=== PATIENT | male | born 1945 | race Caucasian/White ===

== ENCOUNTER 2019-10-19 09:55 | Outpatient (RCR) | payer MEDICARE, SELFPAY ==
[2019-10-19] VITALS (8 sets, daily range): BP systolic 105–140; BP diastolic 52–76; PULSE 66–79; RESP 14–18; TEMP 35.7–36.4; O2SAT 96–100
[2019-10-19] MEDS: ACETAMINOPHEN 325 MG TABLET 650 MG PO (10:28)
[2019-10-19] MEDS: FUROSEMIDE INJ 40 MG/4 ML VIAL 20 MG IV PUSH (12:44)
== END 2019-12-09 23:59 | disposition home or self-care (01) ==
LOC: ANHCPCTRAN 09:55
PROVIDERS: Visit Provider Internal Medicine Hematology & Oncology
DX: D46.9 Myelodysplastic syndrome, unspecified (principal)
CPT/HCPCS: 36415; 36430; 86850; 86900; 86901; 86920; 96374; A9270; J1940; J7050; P9016

== ENCOUNTER 2019-12-07 05:33 | Inpatient (IN) | payer MEDICARE, SELFPAY ==
[2019-12-07] VITALS (93 sets, daily range): BP systolic 66–144; BP diastolic 14–88; PULSE 42–98; RESP 12–29; TEMP 30.9–36.9; O2SAT 18–100; BMI 30.9
--- NOTE | ~2019-12-07 | US_ITS ---
US renal BI 12/08/2019 13:32 Procedure: Realtime transabdominal ultrasound of the kidneys and bladder. Indication: Acute renal insufficiency Comparison: Ultrasound dated 02/15/2018 Findings: Renal echotexture is normal bilaterally without hydronephrosis, contour deforming mass or r enal calculus. The right kidney measures 9.7 cm and left kidney measures 9.8 cm. There is a Lou cat heter in the bladder. Impression: 1: Unremarkable renal ultrasound. No stones, masses or hydronephrosis. Reviewed, dictated and finalized at location B. M CHEESE MAKER Impression: 1: Unremarkable renal ultrasound. No stones, masses or hydronephrosis.
--- NOTE | ~2019-12-07 | XR_ITS ---
EXAMINATION: XR abdomen NG/feed tube insert DATE: 12/07/2019 07:45 INDICATION: Orogastric tube placement. TECHNIQUE: A supine view of the abdomen on 2 radiographs was obtained. COMPARISON: None. FINDINGS: The lower abdomen and left lateral aspect of the abdomen are excluded. The nasogastric tube tip is in the distal esophagus. The endotracheal tube tip is 5.2 cm above the ag. IMPRESSION: 1. Nasogastric tube tip in the distal esophagus. Advancement 13 cm is recommended. Reviewed, dictated and finalized at location A. HOUSE ANALYST IMPRESSION: 1. Nasogastric tube tip in the distal esophagus. Advancement 13 cm is recommend ed.
--- NOTE | ~2019-12-07 | XR_ITS ---
EXAMINATION: XR chest 1V portable DATE: 12/08/2019 05:16 INDICATION: Acute respiratory failure. Septic shock. TECHNIQUE: A single frontal view of the chest was obtained. COMPARISON: Chest single view 12/07/2019, CT abdomen and pelvis 12/07/2019 FINDINGS: There are small pleural effusions. There are airspace opacities in the mid and lower lung z ones with a lower lung predominance. No pneumothorax. The heart size is normal. The endotracheal tube tip is 5.1 cm above the ag. The nasogastric tube tip is in the stomach. IMPRESSION: 1. Small pleural effusions with worsening on the left. 2. Worsened airspace opacities in the mid and lower lung zones, consistent with atelectasis versus pn eumonia. Reviewed, dictated and finalized at location A. DWORKS DESIGNER IMPRESSION: 1. Small pleural effusions with worsening on the left. 2. Worsened airspace opacities in the mid and lower lung zones, consistent with atelectasis versus pneumonia.
--- NOTE | ~2019-12-07 | XR_ITS ---
XR chest 1V portable 12/09/2019 05:36 Indication: Acute respiratory failure. Septic shock. Pneumonia. Procedure: AP portable chest Comparison: Comparison to multiple prior studies sequentially, with oldest reviewed study dated 02/14. Findings: Endotracheal tube tip 4.2 cm above the ag. Cardiomegaly. NG tube in the stomach. Diffus e bilateral airspace disease, likely edema. Layering pleural effusions. No pneumothorax. No acute oss eous abnormality. Impression: 1: Cardiomegaly with diffuse pulmonary edema which has progressed since prior study. This likely repr esents pulmonary edema. Pneumonia is less favored. 2: Layering bilateral pleural effusions. Reviewed, dictated and finalized at location A. CHBOARD OPERATOR Impression: 1: Cardiomegaly with diffuse pulmonary edema which has progressed since prior s tudy. This likely represents pulmonary edema. Pneumonia is less favored. 2: Layering bilateral pleural effusions.
--- NOTE | ~2019-12-07 | CT_ITS ---
EXAMINATION: CT brain wo con DATE: 12/07/2019 06:04 INDICATION: Unresponsive. TECHNIQUE: Computed tomography (CT) of the head was performed without intravenous contrast. The mA wa s adjusted according to patient size. Iterative reconstruction technique was employed. The dose-lengt h product was 605.33 mGy-cm. COMPARISON: None FINDINGS: There is diffuse brain volume loss. There is no intracranial hemorrhage, acute infarction, or abnormal intracranial mass lesion. The ventricles are normal in size. There is mild mucosal thicke juan c in the paranasal sinuses. There are likely changes of ocular lens replacement surgeries. The mas toid air cells are normal. IMPRESSION: 1. Normal aging brain. Reviewed, dictated and finalized at location A. NSTRUCTIVE DENTIST IMPRESSION: 1. Normal aging brain.
--- NOTE | ~2019-12-07 | XR_ITS ---
EXAMINATION: XR chest ET placement DATE: 12/07/2019 06:18 INDICATION: Intubation. TECHNIQUE: A single frontal view of the chest was obtained. COMPARISON: Chest 2 views 02/14/2018 FINDINGS: There are lucencies in the lungs, consistent with emphysema. There is mild atelectasis at l eft lung base. There are mild airspace opacities in the perihilar regions. No pleural effusion or pne umothorax. The heart size is normal. The endotracheal tube tip is 5.4 cm above the ag. IMPRESSION: 1. Mild airspace opacities in the perihilar regions, consistent with atelectasis versus pneumonia. 2. Emphysema. Reviewed, dictated and finalized at location A. WOOD FLOOR INSTALLER IMPRESSION: 1. Mild airspace opacities in the perihilar regions, consistent with atelectasi s versus pneumonia. 2. Emphysema.
--- NOTE | ~2019-12-07 | XR_ITS ---
EXAMINATION: XR abdomen NG/feed tube rechec DATE: 12/07/2019 14:48 INDICATION: Nasogastric tube adjustment. TECHNIQUE: A supine view of the abdomen on 2 radiographs was obtained. COMPARISON: Abdomen radiograph at 7:40 AM, CT abdomen and pelvis 12/07/2019 FINDINGS: The lower abdomen is excluded. There are no dilated loops of bowel. The nasogastric tube ti p is in the stomach. IMPRESSION: 1. Nasogastric tube tip in the stomach. Reviewed, dictated and finalized at location A. ICE CONTROL CLERK
--- NOTE | ~2019-12-07 | CT_ITS ---
EXAMINATION: CT abdomen pelvis wo con DATE: 12/07/2019 09:13 INDICATION: Sepsis. Elevated lactic acid. TECHNIQUE: Computed tomography (CT) of the abdomen and pelvis was performed without intravenous contr ast. Automated exposure control and iterative reconstruction technique were employed. Exam dose: 130 6.92 mGy-cm total exam DLP. COMPARISON: None. FINDINGS: Mild right and minimal left pleural effusion. There is bilateral lower lobe dependent atele ctasis, right greater than left. Cardiomegaly. There is extensive left and right coronary artery calcification. No pericardial effusio n. Bilateral primarily dependent lower lobe atelectasis. A nasogastric tube terminates in the distal esophagus. There is nonspecific circumferential wall thic kening of the distal esophagus, possibly due to esophagitis. There is surface nodularity of the liver suggesting cirrhosis. Clinical correlation is recommended. T here is nonspecific gallbladder wall thickening and evidence of cholelithiasis. There is pericholecys tic fluid and/or stranding. Gallbladder wall thickening can be due to acute or chronic cholecystitis as well as cirrhosis, congestive heart failure. Consider gallbladder ultrasound examination as clinic ally appropriate. No focal hepatic space-occupying mass lesion is evident on this limited noncontrast examination. Sple en measures 12.4 cm height, within upper limits of normal. There is diffuse peripancreatic stranding. There is nonspecific thickening along the anterior pararen al fascia, especially on the left, as well as some prominence of the lateroconal fascia bilaterally. Pancreatitis is not excluded. Clinical correlation is advised. Normal adrenal glands. No renal mass lesion or urinary tract calculus or hydroureteronephrosis. There is extensive calcification of the abdominal aorta, superior mesenteric, renal and iliac arterie s and femoral arteries. No abdominal aortic aneurysm. There are shotty nonenlarged periaortic and aor tocaval lymph nodes. Prominent prostate calcifications. There is a Lou catheter within the evacuated urinary bladder and suggestion of bladder wall thickening. Mild sigmoid diverticulosis; no CT evidence of diverticulitis. No bowel obstruction or intraperitonea l free air. No unusual bowel wall thickening or pneumatosis. Recent nondisplaced anterior right fifth and sixth rib fractures and possible very subtle nondisplace d anterior left fifth rib fracture. There is a right femoral vein catheter extending to the very caudal aspect of the inferior vena cava. IMPRESSION: Surface nodularity of liver suggesting cirrhosis; spleen is upper limits of normal size Peripancreatic stranding and thickening of the anterior pararenal and lateroconal fascia; pancreatiti s cannot be excluded. Clinical correlation is advised Mild colonic diverticulosis Bilateral recent rib fractures Nasogastric tube in distal esophagus Nonspecific thickening of the distal esophageal wall, possibly secondary to esophagitis. Extensive coronary and abdominal aortic atherosclerosis Reviewed, dictated and finalized at [facility] Reviewed, dictated and finalized at [facility]. [employer] IMPRESSION: Surface nodularity of liver suggesting cirrhosis; spleen is upper limits of normal size Peripancreatic stranding and thickening of the anterior pararenal and laterocon al fascia; pancreatitis cannot be excluded. Clinical correlation is advised Mild colonic diverticulosis Bilateral recent rib fractures Nasogastric tube in distal esophagus Nonspecific thickening of the distal esophageal wall, possibly secondary to eso phagitis. Extensive coronary and abdominal aortic atherosclerosis
[2019-12-07] MEDS: RAPID SEQUENCE INTUBATION KIT 1 EACH (05:40)
--- NOTE | 2019-12-07 05:46 | ECG_ITS ---
Measurements Intervals [place] Rate: 72 P: AK: 0 QRS: -64 QRSD: 179 T: 92 QT: 469 QTc: 515 Interpretive Statements ATRIAL FIBRILLATION LEFT AXIS DEVIATION RIGHT BUNDLE BRANCH BLOCK LOW VOLTAGE- PRECORDIAL LEADS CANNOT RULE OUT SEPTAL INFARCT, AGE INDETERMINATE BASELINE ARTIFACT- I ABNORMAL ECG Electronically Signed On 12-07-2019 6:56:17 SOLAR ENERGY SYSTEM INSTALLER by Mirza Weinstein D.O.
[2019-12-07] MEDS: LACTATED RINGERS 1,000 ML 999 ML IV CONT ×2 (05:47→07:36)
--- NOTE | 2019-12-07 06:05 | ED.GENADULT ---
HPI - General Adult General Chief complaint: Cardiac Arrest/CPR <Bridget Patten MD - Last Filed: 12/07/19 23:37> Stated complaint: unresponsive <Bridget Patten MD - Last Filed: 12/07/19 23:37> Time Seen by Provider: 12/07/19 05:46 <Bridget Patten MD - Last Filed: 12/07/19 23:37> Source: EMS <Bridget Patten MD - Last Filed: 12/07/19 23:37> Mode of arrival: EMS <Bridget Patten MD - Last Filed: 12/07/19 23:37> Limitations: clinical condition <Bridget Patten MD - Last Filed: 12/07/19 23:37> History of Present Illness HPI narrative: 74 yo male with h/o DM, hyperlipidemia, HTn who presents via EMS for evaluation of unresponsiveness. EMS states they were called to patient's house for a diabetic case. Patient 's got up this morning and she found patient unresponsive. EMS states on arrival patient was unresponsive and his blood sugar was 57. They gave patient 1 mg glucagon and they states patient appeared to become more responsive. He shortly afterwards became unsponsive again. EMS states patient's HR was found to be in the 40s. He was given 3 doses of atropine 0.5 mg . Patient continued to be unresponsive so they began pacing his rhythm. On ER arrival, patient is unresponsive with agonal breathing. IT is unclear how long patient has been unresponsive <Bridget Patten MD - Last Filed: 12/07/19 23:37> Related Data Home medications: Home Medications Medication Instructions Recorded Confirmed atorvastatin 10 mg PO DAILY 07/19/19 12/07/19 glipizide 5 mg PO BID 07/19/19 12/07/19 metformin 500 mg PO BID 07/19/19 12/07/19 metoprolol succinate 50 mg 50 mg PO DAILY 11/02/19 12/07/19 tablet,extended release 24 hr <Bridget Patten MD - Last Filed: 12/07/19 23:37> Allergies/adverse reactions: Allergies Allergy/AdvReac Type Severity Reaction Status Date / Time No Known Allergies Allergy Verified 10/11/19 14:07 <Bridget Patten MD - Last Filed: 12/07/19 23:37> Review of Systems Review of Systems: ROS unobtainable: unobtainable due to endotracheal tube and unobtainable due to mental condition <Bridget Patten MD - Last Filed: 12/07/19 23:37> [facility] Past Medical History Medical History: Medical History (Updated 12/07/19 @ 13:39 by Zhane Hennessy MD) Alcoholism Anemia Chronic anemia related to iron overload syndrome/myelodysplasia Cirrhosis of liver COPD (chronic obstructive pulmonary disease) Essential (primary) hypertension Hyperlipidemia Iron overload Myelodysplastic syndrome Type 2 diabetes mellitus With history of DKA <Bridget Patten MD - Last Filed: 12/07/19 23:37> Surgical History Surgical History: Surgical History (Updated 12/07/19 @ 10:24 by Jaren España MD) History of cataract surgery History of mandibular surgery History of thoracotomy <Bridget Patten MD - Last Filed: 12/07/19 23:37> Family History Family History: Family History (Updated 12/07/19 @ 21:18 by Smita Montez RN) Sibling Diabetes mellitus Other COPD (chronic obstructive pulmonary disease) <Bridget Patten MD - Last Filed: 12/07/19 23:37> Social History Social History: Social History (Updated 12/07/19 @ 10:26 by Jaren España MD) Social History: Patient smokes a pack a day for about 40 years but quit 2 years ago. Patient drinks alcohol daily. states it is ?quite a bit?. He lives home with his . They do have dogs. His is individual would make medical decisions for him if he is not able. Smoking packs per day: 1 Smoking cigarettes per day: 20.0 Years smoked: 40 Smoking pack-years: 40.00 Smoking status: Former smoker Smoking end date: 10/04/16 Alcohol intake: current Drinks per week: 35 Substance use: unknown Substance use type: does not use Gender identity (if verbalized by the patient): Male Spiritual care concerns: No Agree to bl
[2019-12-07 07:16] LABS: Basophils Absolute Auto 0.1 K/mm3 (0.0-0.1); Basophils Percent Auto 0.2 % (0.2-1.2); Eosinophils Percent Auto 0.1 % (0-4.4); Immature Granulocyte Absolute 0.49 K/mm3 (0.00-0.031); Immature Granulocyte Percent A 2.2 % (0-0.5); Immature Platelet Fraction Pct 8.2 % (0.9-11.2); Lymphocytes Absolute Auto 1.71 K/mm3 (0.9-3.2); Lymphocytes Percent Auto 7.6 % (18.3-44.2); Mean Corpuscular HGB Conc 25.7 g/dl (32-36); Mean Corpuscular Hemoglobin 20.4 pg (26-34); Mean Corpuscular Volume 79.2 fl (80-100); Monocytes Percent Auto 13.1 % (2.6-8.5); Neutrophils Absolute Auto 17.4 K/mm3 (1.3-6.7); Neutrophils Percent Auto 76.8 % (45.5-73.1); Nucleated Red Blood Cells Absolute Auto 1.6 K/mm3 (0.0-0.012); Nucleated Red Blood Cells Perc 6.9 % (0.0-0.2); Platelet Count Result 539 k/mm3 (150-375); Red Cell Distribution Width 33.3 % (11.5-14.5); White Blood Count 22.6 K/mm3 (4.5-10.0)
[2019-12-07 07:22] LABS: Hematocrit 20.6 % (42.0-52.0); Hemoglobin 5.3 g/dL (14.0-18.0)
[2019-12-07 07:27] LABS: Glucose Point of Care 191 (65-105)
[2019-12-07 07:31] LABS: Ethanol < 10 mg/dL (<10)
[2019-12-07 07:35] LABS: Albumin Level 3.8 g/dL (3.5-5.1); Alkaline Phosphatase 85 U/L (38-126); Aspartate Amino Transferase 398 U/L (17-59); Bilirubin,Total 2.6 mg/dL (0.2-1.3); Blood Urea Nitrogen 94 mg/dL (9-20); Calcium 8.5 mg/dL (8.4-10.2); Carbon Dioxide 7 mmol/L (22-30); Chloride 96 mmol/L (98-107); Estimated CRCL calculation 14 ml/min; Estimated Glomerular Filt Rate 11; Glucose 119 mg/dL (75-110); Magnesium 2.2 mg/dL (1.6-2.3); Platelet Estimate Increased (Adequate); Potassium 7.1 mmol/L (3.4-5.0); Sodium 138 mmol/L (137-145)
[2019-12-07 07:36] LABS: Anisocytosis 2+ (NORMAL); Hypochromasia 3+ (NORMAL); Ovalocytes 2+ (NORMAL); Polychromasia 2+ (NORMAL)
[2019-12-07 07:37] LABS: INR 4.7; Partial Thromboplastin Time 45.4 SECONDS (22.3-36.8); Prothrombin Time 43.7 Seconds (11.1-14.7)
[2019-12-07 07:43] LABS: Troponin I 0.074 ng/mL (0.000-0.034)
[2019-12-07] MEDS: CALCIUM GLUCONATE 1,000 MG/10 ML VIAL 2000 MG IV PUSH (07:47)
[2019-12-07] MEDS: SODIUM BICARBONATE 8.4% 50 MEQ/50 ML VIAL IV PUSH (07:49)
[2019-12-07 07:54] LABS: Alveolar/Arterial O2 Gradient 270.7 mmHg; Base Excess ABG -23.2 mEq/l (+/-2.0); Carboxyhemoglobin 0.3 % THb (0-2.0); Fractional Inspired Oxygen 100 %; HCO3 ABG 6.5 mEq/l (22.0-26.0); Methemoglobin ABG 1.3 %THb (0-1.5); Oxygen Content ABG 9.3 %vol (16.0-22.0); Oxygen Saturation ABG 99.6 % (95.0-100.0); Oxyhemoglobin 97.1 % THb (90.0-100.0); PO2 ABG 413.3 mmHg (80.0-100.0); PO2 FiO2 Ratio Arterial Blood 4.13 %; Reduced Hemoglobin 1.3 %THb (0-5.0)
[2019-12-07] MEDS: INSULIN HUMAN REGULAR (*BKC) 100 UNITS/ML 10 UNITS IV PUSH ×2 (07:54→20:06)
[2019-12-07] MEDS: SODIUM CHLORIDE 0.9% IV 1,000 ML 999 ML IV CONT ×2 (07:55→10:30)
[2019-12-07 07:56] LABS: Alanine Aminotransferase 198 U/L (4-50)
[2019-12-07 07:56] LABS: Device VENTILATOR; Site Drawn RIGHT BRACHIAL; Total Hemoglobin 5.9 g/dL (12.0-18.0); pH ABG 6.968 (7.350-7.450)
[2019-12-07 07:56] LABS: Lactic Acid Reflex 16.2 mmol/L (0.7-2.1)
[2019-12-07] MEDS: DEXTROSE 50% 25 GM/50 ML SYRINGE IV PUSH ×2 (07:56→20:06)
[2019-12-07 07:57] LABS: Arterial Blood Gas PEEP 5 cmH2O; Arterial Blood Gas Tidal Volume 450 ml; Arterial Blood Gas Vent Mode CMV; Arterial Blood Gas Ventilator rate 20 /MIN
--- NOTE | 2019-12-07 08:00 | PC.NURSE ---
Assumed care of pt, pt unresponsive at this time, on monitor, a bedside, EDP Dr Vasquez at bedside discussing POC.
--- NOTE | 2019-12-07 08:50 | PC.NURSE ---
Levophed dc'd from L foot IV and placed on proximal groin Central line to cont on 5mcg/min.
--- NOTE | 2019-12-07 09:50 | PM.IMHP ---
H&P: HPI History of Present Illness Chief complaint: Multisystem organ failure/severe lactic acidosis/s Narrative: Blake Pettit is a 74 year old male with cirrhosis, COPD and diabetes was brought into the emergency room because of altered mental status, bradycardia and angonal respirations. Patient currently on mechanical ventilation. He was seen the emergency room. No family in the room. Majority of the history obtained from the chart and discussed with on phone. feels the patient has been ?going downhill over the past year. He has been ?always lethargic? with fatigue over the past few months. Patient the past 2 days has had increasing weakness and polyuria. He has had poor oral intake. His symptoms worsen. He was not out of bed yesterday. He was having trouble walking because of fatigue and weakness. No nausea or vomiting. No fever or chills. No chest pain or headache. No complaints of other symptoms. The patient was refusing to come to the emergency room per 's wishes. was checking up on him all evening but this morning noted that patient was having trouble breathing and was unresponsive. EMS was contacted at that time. EMS found the Glucose 57 and glucagon given with initial improvement but then became unresponsive. He was found to be bradycardic with HR in the 40's and atropine given x3. Pacing started. Patient was brought to ER for evaluation. In the emergency room, pressure was normal initially but then dropped to 77/44. Patient had agonal breathing and was intubated. ABG showing pH 6.98 with pCO2 29. Lactic acid 16. Potassium 7.1. AG 35, BUN 94 and Cr 5.1. Glucose 191. Lipase 464Central line was placed. Levophed was started. CXR showing perihilar airspace disease. CT brain normal. CT showing possible pancreatitis. Hgb 5.3, WBC 22K, Started on broad-spectrum IV antibiotics and IV fluids started as well. He was admitted to the ICU for further care. No urine output since Lou placed. Review of Systems Review of Systems: ROS unobtainable: unobtainable due to endotracheal tube and unobtainable due to mental status PMFSH Past Medical History Medical History (Updated 12/09/19 @ 09:00 by Zhane Hennessy MD) Alcoholism Anemia Chronic anemia related to iron overload syndrome/myelodysplasia Cirrhosis of liver COPD (chronic obstructive pulmonary disease) Essential (primary) hypertension Hyperlipidemia Iron overload Myelodysplastic syndrome Type 2 diabetes mellitus With history of DKA Surgical History Surgical History (Updated 12/07/19 @ 10:24 by Jaren España MD) History of cataract surgery History of mandibular surgery History of thoracotomy Family History Family History (Updated 12/07/19 @ 21:18 by Smita Montez RN) Sibling Diabetes mellitus Other COPD (chronic obstructive pulmonary disease) Social History Social History (Updated 12/07/19 @ 10:26 by Jaren España MD) Social History: Patient smokes a pack a day for about 40 years but quit 2 years ago. Patient drinks alcohol daily. states it is ?quite a bit?. He lives home with his . They do have dogs. His is individual would make medical decisions for him if he is not able. Smoking packs per day: 1 Smoking cigarettes per day: 20.0 Years smoked: 40 Smoking pack-years: 40.00 Smoking status: Former smoker Smoking end date: 10/04/16 Alcohol intake: current Drinks per week: 35 Substance use: unknown Substance use type: does not use Gender identity (if verbalized by the patient): Male Spiritual care concerns: No Agree to blood products: Yes Meds Home Medications and Allergies Home Medications Medication Instructions Recorded Confirmed Type atorvastatin 10 mg PO DAILY 07/19/19 12/07/19 History glipizide 5 mg PO BID 07/19/19 12/07/19 History metformin 500 mg PO BID 07/19/19 12/07/19 History insulin lispro 100 unit/mL See Rx Instructions .ROUTE
[2019-12-07 10:15] LABS: Lipase 464 U/L (23-300)
[2019-12-07 10:21] LABS: Glucose Point of Care 207 (65-105)
[2019-12-07 10:22] LABS: Reflex Lactic Acid Yes or No Add Lactic
[2019-12-07 11:39] LABS: Alveolar/Arterial O2 Gradient 477.4 mmHg; Base Excess ABG -16.5 mEq/l (+/-2.0); Carboxyhemoglobin 0.3 % THb (0-2.0); Fractional Inspired Oxygen 100 %; HCO3 ABG 11.1 mEq/l (22.0-26.0); Methemoglobin ABG 1.1 %THb (0-1.5); Oxygen Content ABG 9.5 %vol (16.0-22.0); Oxyhemoglobin 96.4 % THb (90.0-100.0); PCO2 ABG 33.7 mmHg (35.0-45.0); PO2 ABG 201.9 mmHg (80.0-100.0); PO2 FiO2 Ratio Arterial Blood 2.02 %; Reduced Hemoglobin 2.2 %THb (0-5.0)
[2019-12-07 11:40] LABS: pH ABG 7.137 (7.350-7.450)
[2019-12-07 11:41] LABS: Device VENTILATOR; Site Drawn ARTLINE; Total Hemoglobin 6.6 g/dL (12.0-18.0)
--- NOTE | 2019-12-07 11:54 | WPDCNINT ---
Assessment and Plan Assessment and plan (1) Septic shock: Code(s): A41.9 - Sepsis, unspecified organism; R65.21 - Severe sepsis with septic shock Status: Acute Assessment and Plan: - severe lactic acidosis, patient was adequately fluid-resuscitated. Patient multiorgan failure. Patient upon arrival to the ICU was bradycardic in the 40s, hypotensive with systolic blood pressure in the 50s, agonal breathing on the mechanical ventilator. Was given 1 amp of epinephrine, 3 amps of bicarb, ventilator adjusted. Levophed was initially bumped up and is slowly being weaned down - lactic acid trending down, will continue to monitor - continue ceftriaxone, azithromycin and vancomycin - blood cultures have been obtained and pending - patient on Levophed, maintain MAP > 70mmHg (2) Acute respiratory failure: Qualifiers: Respiratory failure complication: unspecified whether with hypoxia or hypercapnia Qualified Code(s): J96.00 - Acute respiratory failure, unspecified whether with hypoxia or hypercapnia Code(s): J96.00 - Acute respiratory failure, unspecified whether with hypoxia or hypercapnia Status: Acute Assessment and Plan: patient presented to the ED with agonal respirations, metabolic acidosis, was intubated in the ED on 12/07/2019. - ABGs showed significant metabolic acidosis, ventilator adjusted, will wean FiO2 as tolerated - chest x-ray showed infiltrates in the perihilar region - continue antibiotics as above - continue bronchodilators (3) BLAS (acute kidney injury): Code(s): N17.9 - Acute kidney failure, unspecified Status: Acute Assessment and Plan: patient presented with acute kidney injury and elevated creatinine - adequately fluid-resuscitated - hyperkalemia, treated with bicarb, albuterol with improvement - severe metabolic acidosis on ABGs with significantly low bicarb, will start bicarb infusion - check renal ultrasound for obstructive uropathy - continue to monitor renal function, electrolytes and urine output (4) Hyperkalemia: Code(s): E87.5 - Hyperkalemia Status: Acute Assessment and Plan: repeat potassium was 4.9 ( 7.1 on admission) - will continue monitor BMP (5) Severe anemia: Code(s): D64.9 - Anemia, unspecified Status: Acute Assessment and Plan: patient presented with hemoglobin of 5.3, patient was transfuse 1 unit of packed RBCs, will repeat CBC post transfusion - patient has a history of chronic anemia /miyelodysplasia, requiring blood transfusions in the recent past. Patient follows up with Dr. Negro (6) Elevated LFTs: Code(s): R94.5 - Abnormal results of liver function studies Status: Acute Assessment and Plan: LFTs elevated could be related to cirrhosis, shock liver - will maintain adequate mean arterial pressures for end organ perfusion - Follow LFTs (7) Alcoholism: Code(s): F10.20 - Alcohol dependence, uncomplicated Status: Acute Assessment and Plan: according the patient drinks daily, she states he drinks quite a bit - started on thiamine and folic acid - elevated LFTs could be also related to alcohol abuse - CT scan of the abdomen and pelvis On 12/07/2019 showed surface nodularity off liver suggesting cirrhosis, spleen is upper limits of normal size. Is peripancreatic stranding and thickening, pancreatitis cannot be excluded. Mild colonic diverticulosis, bilateral recent rib fractures, extensive coronary and abdominal aortic arthrosclerosis. Nonspecific thickening of distal esophageal wall possible 2nd esophagitis. (8) Myelodysplastic syndrome: Code(s): D46.9 - Myelodysplastic syndrome, unspecified Status: Acute Assessment and Plan: patient follows with Dr. Negro (9) Cirrhosis of liver: Code(s): K74.60 - Unspecified cirrhosis of liver Status: Chronic Assessment and Plan: known hist
[2019-12-07 12:06] LABS: Ammonia 39 umol/L (9-30)
[2019-12-07 12:09] LABS: INR 4.8
[2019-12-07 12:10] LABS: Partial Thromboplastin Time 47.5 SECONDS (22.3-36.8)
[2019-12-07 12:23] LABS: Albumin Level 3.1 g/dL (3.5-5.1); Alkaline Phosphatase 89 U/L (38-126); Aspartate Amino Transferase 501 U/L (17-59); Bilirubin,Total 2.2 mg/dL (0.2-1.3); Blood Urea Nitrogen 93 mg/dL (9-20); Calcium 7.2 mg/dL (8.4-10.2); Carbon Dioxide 11 mmol/L (22-30); Chloride 92 mmol/L (98-107); Creatine Kinase 678 U/L (55-170); Estimated CRCL calculation 15 ml/min; Estimated Glomerular Filt Rate 12; Glucose 274 mg/dL (75-110); Lipase 508 U/L (23-300); Phosphorus 10.6 mg/dL (2.5-4.5); Potassium 4.9 mmol/L (3.4-5.0); Sodium 139 mmol/L (137-145)
[2019-12-07 12:26] LABS: Hematocrit 21.1 % (42.0-52.0); Immature Platelet Fraction Pct 8.8 % (0.9-11.2); Mean Corpuscular HGB Conc 28.4 g/dl (32-36); Mean Corpuscular Hemoglobin 22.1 pg (26-34); Mean Corpuscular Volume 77.9 fl (80-100); Platelet Count Result 463 k/mm3 (150-375); Red Blood Count 2.71 M/mm3 (4.6-6.20); Red Cell Distribution Width 31.2 % (11.5-14.5)
[2019-12-07 12:29] LABS: Alanine Aminotransferase 213 U/L (4-50)
[2019-12-07 12:33] LABS: Lactic Acid Reflex 13.9 mmol/L (0.7-2.1)
--- NOTE | 2019-12-07 12:48 | ECHO_ITS ---
Patient Info Name: Blake Pettit Age: 74 years : 1945 Gender: Male Ht: 69 in Wt: 222 lbs BSA: 2.25 m2 HR: 42 bpm BP: 89 / 49 mmHg Technical Quality: Fair Exam Date: 12/07/2019 1:51 PM Exam Location: [facility] Patient Status: Inpatient Admit Date: 12/07/2019 Staff Ordering Physician: Zhane Hennessy MD Wedding Cake Designer: Isela Marcus RDCS Attending Provider: Jaren España MD Referring Physician: Gerhard YEAGER; Exam Type: CA echo dop color flow w con Study Info Complete two-dimensional, color flow and Doppler transthoracic echocardiogram is performed with contrast to opacify the left ventrical and to improve the deliniation of the left ventrical endocarial boarders. Contrast/Agitated Saline Contrast/Ag. Saline: Definity Amount: 2.00 ml Administered By: Claudio Delcid, RN Summary 1. Left ventricular chamber dimension is normal. 2. Definity contrast administered improved wall motion interpretation. 3. Left ventricular systolic function is hyperdynamic, estimated at >70%. 4. The left ventricular diastolic function is grade III diastolic dysfunction. 5. Left atrial chamber dimension is mildly enlarged. 6. Right atrial chamber dimension is moderately enlarged. 7. There is moderate aortic valve sclerosis. 8. Moderate mitral annular calcification. 9. There is mild mitral valve regurgitation. 10. There is mild tricuspid valve regurgitation. 11. Severe pulmonary hypertension, estimated pulmonary arterial systolic pressure is 70 mmHg. 12. Dilated inferior vena cava with >50% collapse upon inspiration consistent with elevated right atrial pressure, 10 mmHg. Left Ventricle Definity contrast administered improved wall motion interpretation. Left ventricular chamber dimension is normal. Left ventricular systolic function is hyperdynamic, estimated at >70%. The left ventricular diastolic function is grade III diastolic dysfunction. Right Ventricle Right ventricular chamber dimension is normal. Right ventricular systolic function is normal. Left Atria Left atrial chamber dimension is mildly enlarged. Right Atria Right atrial chamber dimension is moderately enlarged. Aortic Valve The aortic valve is trileaflet. There is moderate aortic valve sclerosis. There is no aortic valve stenosis. There is no aortic valve regurgitation. Pulmonic Valve There is no pulmonic regurgitation. Mitral Valve Moderate mitral annular calcification. The mitral valve has not well visualized. There is no mitral valve stenosis. There is mild mitral valve regurgitation. Tricuspid Valve There is mild tricuspid valve regurgitation. Severe pulmonary hypertension, estimated pulmonary arterial systolic pressure is 70 mmHg. Pericardium/Pleural There is no pericardial effusion. Inferior Vena Cava Dilated inferior vena cava with >50% collapse upon inspiration consistent with elevated right atrial pressure, 10 mmHg. Aorta The aortic root size at the sinus of Valsalva is normal. Left Ventricular Outflow Tract Name Value Normal LVOT 2D LVOT Diameter 2.01 cm LVOT Doppler
[2019-12-07 12:49] LABS: Band Neutrophils Percent 4 % (0-6); Monocytes Percent Manual 10 % (3-9); Neutrophils Percent Manual 69 % (46-73); Nucleated Red Blood Cells 9 %; Total Cells Counted 100
[2019-12-07 12:56] LABS: Platelet Estimate Adequate (Adequate)
[2019-12-07 12:57] LABS: Anisocytosis 1+ (NORMAL); Hypochromasia 1+ (NORMAL); Ovalocytes 1+ (NORMAL)
[2019-12-07 13:42] LABS: Alveolar/Arterial O2 Gradient 250.3 mmHg; Base Excess ABG -17.5 mEq/l (+/-2.0); Carboxyhemoglobin 0.3 % THb (0-2.0); Fractional Inspired Oxygen 70 %; HCO3 ABG 10.2 mEq/l (22.0-26.0); Oxygen Content ABG 10.6 %vol (16.0-22.0); Oxygen Saturation ABG 99.1 % (95.0-100.0); Oxyhemoglobin 96.9 % THb (90.0-100.0); PCO2 ABG 31.5 mmHg (35.0-45.0); PO2 ABG 214.9 mmHg (80.0-100.0); PO2 FiO2 Ratio Arterial Blood 3.07 %; Reduced Hemoglobin 1.8 %THb (0-5.0)
[2019-12-07 13:48] LABS: Device VENTILATOR; Site Drawn ARTLINE; Total Hemoglobin 7.4 g/dL (12.0-18.0); pH ABG 7.128 (7.350-7.450)
[2019-12-07 13:49] LABS: Arterial Blood Gas PEEP 5 cmH2O; Arterial Blood Gas Tidal Volume 500 ml; Arterial Blood Gas Vent Mode CMV; Arterial Blood Gas Ventilator rate 26 /MIN
[2019-12-07 13:50] LABS: Arterial Blood Gas PEEP 5 cmH2O; Arterial Blood Gas Tidal Volume 500 ml; Arterial Blood Gas Vent Mode CMV; Arterial Blood Gas Ventilator rate 26 /MIN
--- NOTE | 2019-12-07 14:15 | P.PCNBED_ITS ---
Procedures Arterial Line: Arterial Line Time: 11:04 Discussed with the patient/family/POA, the non-emergent placement of an arterial catheter, including its clinical necessity/indication and associated potential risks and complications: No Patient/family/POA and/or understand(s) and acknowledge(s) the need to proceed with the arterial catheter insertion as an important element of the patient's clinical management: No Perfomed Emergently - Given emergent patient conditions, temporal constraints may have precluded informed consent: Yes A pre-procedural Time-Out was completed immediately before starting the p rocedure and confirmed: Patient Identification, Site, Procedure, Patient Position and the Availability of Requisite Equipment: Yes Patient Position: supine Senior Loan Processor Prep: sterile gown, sterile gloves, mask and hat Site: left and femoral Site Prep: chlorhexidine and sterile drape Technique used: ultrasound-guided Length: 12 cm Closure/Dressing: suture, antimicrobial disc and tegaderm Patient tolerated procedure: well Complications: none
[2019-12-07 14:20] LABS: Glucose Point of Care 150 (65-105)
[2019-12-07] MEDS: ALBUTEROL SULFATE NEB 2.5 MG/0.5 ML INH 5 MG INHALATION (14:25)
[2019-12-07] MEDS: IPRATROPIUM BR 0.02% INH SOLN 0.5 MG/2.5 ML VIAL INHALATION (14:25)
[2019-12-07] MEDS: NOREPINEPHRINE 8 MG/D5W 250 ML 8 MG/250 ML BAG 56.3 MG IV CONT (15:00)
[2019-12-07] MEDS: MIDAZOLAM HCL 2 MG/2 ML VIAL (15:00)
[2019-12-07] MEDS: PERFLUTREN LIPID MICROSPHERES 1.5 ML VIAL DILUTED TO 10 ML TOTAL VOLUME IV PUSH (15:07)
[2019-12-07 15:16] LABS: Hematocrit 21.6 % (42.0-52.0)
[2019-12-07 15:19] LABS: Hemoglobin 6.2 g/dL (14.0-18.0)
[2019-12-07] MEDS: SODIUM BICARBONATE 8.4% 150 MEQ in WATER, STERILE FOR INJECTION 950 ML 125 MEQ IV CONT ×2 (15:41→22:55)
[2019-12-07] MEDS: MIDAZOLAM HCL 50 MG in DEXTROSE 5% 90 ML IV CONT (15:43)
[2019-12-07 16:09] LABS: Free T4 Free Thyroxine Reflex 0.92 ng/dL (0.78-2.19)
[2019-12-07] MEDS: FOLIC ACID 1 MG/0.2 ML INJ IV PUSH (16:12)
[2019-12-07] MEDS: THIAMINE HCL 200 MG/2 ML VIAL 100 MG IV PUSH (16:12)
[2019-12-07] MEDS: PANTOPRAZOLE SODIUM IV 40 MG VIAL IV PUSH ×2 (16:12→22:53)
[2019-12-07] MEDS: INSULIN ASPART (*BKC) 100 UNITS/ML SUB-Q (16:16)
[2019-12-07] MEDS: VASOPRESSIN INJ 100 UNITS in DEXTROSE 5% 95 ML IV CONT (16:33)
[2019-12-07 16:51] LABS: Total Triiodothyronine (T3) 0.82 NG/ML (0.97-1.69)
[2019-12-07 17:08] LABS: Glucose Point of Care 305 (65-105)
[2019-12-07 18:07] LABS: Mean Corpuscular Hemoglobin 21.6 pg (26-34); Mean Corpuscular Volume 74.5 fl (80-100); Platelet Count Result 521 k/mm3 (150-375); Red Blood Count 2.78 M/mm3 (4.6-6.20); Red Cell Distribution Width 31.8 % (11.5-14.5); White Blood Count 44.4 K/mm3 (4.5-10.0)
[2019-12-07 18:11] LABS: Hematocrit 20.7 % (42.0-52.0)
[2019-12-07 18:24] LABS: Albumin Level 3.3 g/dL (3.5-5.1); Alkaline Phosphatase 95 U/L (38-126); Aspartate Amino Transferase 694 U/L (17-59); Bilirubin,Total 2.9 mg/dL (0.2-1.3); Blood Urea Nitrogen 99 mg/dL (9-20); Calcium 7.2 mg/dL (8.4-10.2); Carbon Dioxide 9 mmol/L (22-30); Chloride 92 mmol/L (98-107); Estimated CRCL calculation 14 ml/min; Estimated Glomerular Filt Rate 11; Glucose 331 mg/dL (75-110); Sodium 135 mmol/L (137-145)
[2019-12-07 18:26] LABS: Lactic Acid 11.6 mmol/L (0.7-2.1)
[2019-12-07 18:31] LABS: Alanine Aminotransferase 308 U/L (4-50)
[2019-12-07] MEDS: SODIUM CHLORIDE 0.9% IV 250 ML 30 ML IV CONT (18:44)
[2019-12-07] MEDS: ALBUTEROL SULFATE NEB 2.5 MG/0.5 ML INH 10 MG INHALATION (19:32)
--- NOTE | 2019-12-07 19:39 | ADMGEN ---
This patient, Blake Pettit, was admitted to Intensive Care Unit-8 at 1047. Patient/family oriented to hospital policies and general routines including ID bracelet, bed and alarms, visiting hours, pain management, procedures, bathroom and other care routines, personal items, smoking policy, room service/diet, and visiting hours. Valuables list has been completed. Information on how to activate the Rapid Response Team has been discussed. Patient/Family are encouraged to report perceived risks to care and to ask questions if they do not understand what they are told or what they should do.
[2019-12-07] MEDS: SODIUM POLYSTYRENE SULFONONATE 15 GM/60 ML BTL PO (20:05)
[2019-12-07] MEDS: SODIUM BICARBONATE 8.4% 50 MEQ/50 ML VIAL 100 MEQ IV PUSH (20:05)
--- NOTE | 2019-12-07 20:36 | PCRCNOTE ---
1999 neb tx was omitted due to pt receiving a continuous tx at 1930
[2019-12-07 21:06] LABS: Hematocrit 22.4 % (42.0-52.0)
[2019-12-07 23:00] LABS: Glucose Point of Care 383 (65-105)
[2019-12-07 23:08] LABS: Potassium 5.3 mmol/L (3.4-5.0)
[2019-12-07 23:29] LABS: Blood Urea Nitrogen 107 mg/dL (9-20); Calcium 6.7 mg/dL (8.4-10.2); Carbon Dioxide 18 mmol/L (22-30); Chloride 88 mmol/L (98-107); Estimated CRCL calculation 15 ml/min; Estimated Glomerular Filt Rate 12; Glucose 451 mg/dL (75-110); Sodium 134 mmol/L (137-145)
[2019-12-07 23:30] LABS: Lactic Acid 6.2 mmol/L (0.7-2.1)
[2019-12-08] VITALS (31 sets, daily range): BP systolic 87–146; BP diastolic 44–76; PULSE 64–94; RESP 18–26; TEMP 36.3–37.4; O2SAT 93–99; BMI 32.6
[2019-12-08] MEDS: INSULIN HUMAN REGULAR (*BKC) 100 UNITS/ML 9 UNITS IV PUSH (00:09)
[2019-12-08] MEDS: INSULIN HUMAN REGULAR (*BKC) 100 UNITS in SODIUM CHLORIDE 0.9% IV 99 ML 7.8 UNITS IV CONT (01:05)
[2019-12-08 01:09] LABS: Glucose Point of Care 453 (65-105)
[2019-12-08 02:19] LABS: Glucose Point of Care 425 (65-105)
[2019-12-08] MEDS: ALBUTEROL SULFATE NEB 2.5 MG/0.5 ML INH 5 MG INHALATION ×4 (02:25→20:30)
[2019-12-08] MEDS: IPRATROPIUM BR 0.02% INH SOLN 0.5 MG/2.5 ML VIAL INHALATION ×4 (02:25→20:30)
[2019-12-08 03:12] LABS: Glucose Point of Care 398 (65-105)
[2019-12-08 03:12] LABS: Glucose Point of Care 297 (65-105)
[2019-12-08 03:30] LABS: Blood Urea Nitrogen 115 mg/dL (9-20); Calcium 6.7 mg/dL (8.4-10.2); Carbon Dioxide 25 mmol/L (22-30); Chloride 88 mmol/L (98-107); Estimated CRCL calculation 15 ml/min; Estimated Glomerular Filt Rate 12; Glucose 411 mg/dL (75-110); Potassium 4.3 mmol/L (3.4-5.0); Sodium 133 mmol/L (137-145)
[2019-12-08 04:43] LABS: INR 3.2; Prothrombin Time 32.5 Seconds (11.1-14.7)
[2019-12-08 04:44] LABS: Partial Thromboplastin Time 41.2 SECONDS (22.3-36.8)
[2019-12-08 04:49] LABS: Add Urine Microscopic? YES; Appearance Urine Cloudy (Clear); Bacteria Urine Trace /hpf; Bilirubin Urine Negative (Negative); Blood Urine 3+ (Negative); Color Urine Amber (Yellow); Glucose Urine UA 1+ mg/dL (Negative); Ketones Urine Negative (Negative); Leukocyte Esterase Ur 1+ LEU/UL (NEGATIVE); Mucus Urine Rare /lpf; Nitrate Urine Negative (Negative); Protein Urine 2+ mg/dL (Negative); RBC Urine >75 /hpf (0-2); Specific Grav Ur 1.017 (1.001-1.035); Squamous Epithelial Cell Urine Occasional /hpf (Few); Urobilinogen Urine Negative mg/dL (<2.0); WBC Urine 21-30 /hpf (0-3)
[2019-12-08 04:53] LABS: Hemoglobin A1C 7.7 % (<5.7)
[2019-12-08 04:55] LABS: Lactic Acid 4.9 mmol/L (0.7-2.1)
[2019-12-08 04:57] LABS: Alveolar/Arterial O2 Gradient 177.8 mmHg; Base Excess ABG 1.6 mEq/l (+/-2.0); Carboxyhemoglobin 0.3 % THb (0-2.0); Fractional Inspired Oxygen 40 %; HCO3 ABG 25.1 mEq/l (22.0-26.0); Methemoglobin ABG 0.7 %THb (0-1.5); Oxygen Content ABG 11.3 %vol (16.0-22.0); Oxygen Saturation ABG 94.8 % (95.0-100.0); Oxyhemoglobin 90.8 % THb (90.0-100.0); PCO2 ABG 34.6 mmHg (35.0-45.0); PO2 ABG 67.6 mmHg (80.0-100.0); PO2 FiO2 Ratio Arterial Blood 1.69 %; Reduced Hemoglobin 8.2 %THb (0-5.0); Total Hemoglobin 8.8 g/dL (12.0-18.0); pH ABG 7.478 (7.350-7.450)
[2019-12-08 04:58] LABS: Modified Allen's Test Pass; Site Drawn ARTLINE
[2019-12-08 04:59] LABS: Arterial Blood Gas PEEP 5 cmH2O; Arterial Blood Gas Vent Mode CMV; Arterial Blood Gas Ventilator rate 26 /MIN; Device VENTILATOR
[2019-12-08 05:00] LABS: Arterial Blood Gas Pressure Support 0 cmH2O; Arterial Blood Gas Tidal Volume 500 ml
[2019-12-08 05:01] LABS: Alanine Aminotransferase 522 U/L (4-50); Albumin Level 3.1 g/dL (3.5-5.1); Alkaline Phosphatase 94 U/L (38-126); Bilirubin,Total 3.3 mg/dL (0.2-1.3); Blood Urea Nitrogen 116 mg/dL (9-20); Calcium 6.8 mg/dL (8.4-10.2); Carbon Dioxide 27 mmol/L (22-30); Chloride 88 mmol/L (98-107); Estimated CRCL calculation 15 ml/min; Estimated Glomerular Filt Rate 12; Glucose 375 mg/dL (75-110); Magnesium 1.4 mg/dL (1.6-2.3); Phosphorus 6.7 mg/dL (2.5-4.5); Potassium 4.1 mmol/L (3.4-5.0); Sodium 133 mmol/L (137-145)
[2019-12-08 05:09] LABS: Amphetamine Screen Urine Negative (Negative); Barbiturate Screen Urine Negative (Negative); Benzodiazepines Screen Urine Positive (Negative); Cannabinoid Screen Urine Negative (Negative); Cocaine Screen Urine Negative (Negative); Methadone Screen Urine Negative (Negative); Opiate Screen Urine Negative (Negative); Phencyclidine Screen Urine Negative (Negative)
[2019-12-08 05:25] LABS: CRP 3.3 mg/dL (<1.0)
[2019-12-08 05:30] LABS: Glucose Point of Care 379 (65-105)
[2019-12-08 05:31] LABS: Glucose Point of Care 301 (65-105)
[2019-12-08 06:04] LABS: Hematocrit 21.8 % (42.0-52.0); Hemoglobin 7.1 g/dL (14.0-18.0); Immature Platelet Fraction Pct 8.2 % (0.9-11.2); Mean Corpuscular HGB Conc 32.6 g/dl (32-36); Mean Corpuscular Hemoglobin 23.4 pg (26-34); Mean Corpuscular Volume 71.9 fl (80-100); Platelet Count Result 369 k/mm3 (150-375); Red Blood Count 3.03 M/mm3 (4.6-6.20); Red Cell Distribution Width 29.2 % (11.5-14.5); White Blood Count 30.6 K/mm3 (4.5-10.0)
[2019-12-08 06:27] LABS: Aspartate Amino Transferase 1329 U/L (17-59)
[2019-12-08 06:36] LABS: Glucose Point of Care 289 (65-105)
[2019-12-08 06:52] LABS: Anisocytosis 2+ (NORMAL); Band Neutrophils Percent 2 % (0-6); Lymphocytes Absolute Manual 0.91 K/mm3 (1.1-4.5); Monocytes Absolute Manual 5.81 K/mm3 (0.1-0.90); Monocytes Percent Manual 19 % (3-9); Neutrophils Absolute Manual 23.86 K/mm3 (1.3-6.7); Neutrophils Percent Manual 76 % (46-73); Platelet Estimate Adequate (Adequate); Total Cells Counted 100
[2019-12-08 06:54] LABS: Glucose Point of Care 269 (65-105)
[2019-12-08 06:55] LABS: Lipase 10664 U/L (23-300)
[2019-12-08] MEDS: INSULIN HUMAN REGULAR (*BKC) 100 UNITS in SODIUM CHLORIDE 0.9% IV 99 ML 16.7 UNITS IV CONT (07:45)
[2019-12-08 08:15] LABS: Glucose Point of Care 200 (65-105)
[2019-12-08] MEDS: SODIUM BICARBONATE 8.4% 150 MEQ in DEXTROSE 5% 1,000 ML 950 ML 125 MEQ IV CONT (08:15)
[2019-12-08] MEDS: FOLIC ACID 1 MG/0.2 ML INJ IV PUSH (08:23)
[2019-12-08] MEDS: THIAMINE HCL 200 MG/2 ML VIAL 100 MG IV PUSH (08:24)
[2019-12-08 08:37] LABS: Add Urine Microscopic? YES; Appearance Urine Cloudy (Clear); Bacteria Urine Trace /hpf; Bilirubin Urine Negative (Negative); Blood Urine 3+ (Negative); Color Urine Amber (Yellow); Glucose Urine UA 1+ mg/dL (Negative); Hyaline Casts Urine 50+ /lpf; Ketones Urine Negative (Negative); Leukocyte Esterase Ur Trace LEU/UL (Negative); Mucus Urine Rare /lpf; Nitrate Urine Negative (Negative); Protein Urine 2+ mg/dL (Negative); RBC Urine >75 /hpf (0-2); Specific Grav Ur 1.017 (1.001-1.035); Squamous Epithelial Cell Urine Rare /hpf (Few); Urobilinogen Urine Negative mg/dL (<2.0); WBC Urine 21-30 /hpf
[2019-12-08 09:24] LABS: Glucose Point of Care 186 (65-105)
[2019-12-08 10:27] LABS: Glucose Point of Care 167 (65-105)
[2019-12-08] MEDS: PANTOPRAZOLE SODIUM IV 40 MG VIAL IV PUSH ×2 (10:43→21:34)
[2019-12-08] MEDS: INSULIN DETEMIR 100 UNITS/ML 20 UNITS SUB-Q ×2 (10:44→21:57)
[2019-12-08 10:58] LABS: Blood Urea Nitrogen 112 mg/dL (9-20); Calcium 6.4 mg/dL (8.4-10.2); Carbon Dioxide 32 mmol/L (22-30); Chloride 88 mmol/L (98-107); Estimated CRCL calculation 15 ml/min; Estimated Glomerular Filt Rate 13; Glucose 170 mg/dL (75-110); Lactic Acid 2.7 mmol/L (0.7-2.1); Potassium 3.8 mmol/L (3.4-5.0); Sodium 136 mmol/L (137-145)
[2019-12-08 11:31] LABS: Glucose Point of Care 149 (65-105)
[2019-12-08 12:03] LABS: Alveolar/Arterial O2 Gradient 242.9 mmHg; Base Excess ABG 6.1 mEq/l (+/-2.0); Carboxyhemoglobin 0.3 % THb (0-2.0); Fractional Inspired Oxygen 50 %; HCO3 ABG 29.6 mEq/l (22.0-26.0); Methemoglobin ABG 0.8 %THb (0-1.5); Oxygen Content ABG 11.6 %vol (16.0-22.0); Oxygen Saturation ABG 95.5 % (95.0-100.0); PCO2 ABG 38.3 mmHg (35.0-45.0); PO2 ABG 70.5 mmHg (80.0-100.0); PO2 FiO2 Ratio Arterial Blood 1.41 %; Reduced Hemoglobin 7.9 %THb (0-5.0); pH ABG 7.506 (7.350-7.450)
[2019-12-08 12:04] LABS: Arterial Blood Gas Vent Mode CMV; Arterial Blood Gas Ventilator rate 22 /MIN; Device VENTILATOR; Modified Allen's Test Pass; Site Drawn LEFT RADIAL
[2019-12-08 12:05] LABS: Arterial Blood Gas PEEP 5 cmH2O; Arterial Blood Gas Tidal Volume 500 ml
--- NOTE | 2019-12-08 12:07 | WPDINTPN ---
Progress Note: A&P Assessment and Plan (1) Septic shock: Code(s): A41.9 - Sepsis, unspecified organism; R65.21 - Severe sepsis with septic shock Status: Acute Assessment and Plan: - severe lactic acidosis, patient was adequately fluid-resuscitated. Patient multiorgan failure. Patient upon arrival to the ICU was bradycardic in the 40s, hypotensive with systolic blood pressure in the 50s, agonal breathing on the mechanical ventilator. Was given 1 amp of epinephrine, 3 amps of bicarb, ventilator adjusted. Levophed was initially bumped up and is slowly being weaned down - lactic acid trending down, will continue to monitor - continue ceftriaxone, azithromycin and vancomycin - blood cultures No growth - patient on Levophed, maintain MAP > 70mmHg - elevated white blood cell, - started stress dose steroids (2) Acute respiratory failure: Qualifiers: Respiratory failure complication: unspecified whether with hypoxia or hypercapnia Qualified Code(s): J96.00 - Acute respiratory failure, unspecified whether with hypoxia or hypercapnia Code(s): J96.00 - Acute respiratory failure, unspecified whether with hypoxia or hypercapnia Status: Acute Assessment and Plan: patient presented to the ED with agonal respirations, metabolic acidosis, was intubated in the ED on 12/07/2019. - ABGs much improved this morning, ventilator adjusted, will wean FiO2 as tolerated - chest x-ray showing worsening airspace opacities - continue antibiotics as above - continue bronchodilators (3) BLAS (acute kidney injury): Code(s): N17.9 - Acute kidney failure, unspecified Status: Acute Assessment and Plan: patient presented with acute kidney injury and elevated creatinine - adequately fluid-resuscitated - hyperkalemia: Resolved - metabolic acid improving on bicarb infusion. Continue bicarb infusion - check renal ultrasound for obstructive uropathy - patient oliguric /anuric, will have Nephrology evaluate the patient - continue to monitor renal function, electrolytes and urine output (4) Hyperkalemia: Code(s): E87.5 - Hyperkalemia Status: Acute Assessment and Plan: repeat potassium was 4.1 ( 7.1 on admission) - will continue monitor (5) Severe anemia: Code(s): D64.9 - Anemia, unspecified Status: Acute Assessment and Plan: patient presented with hemoglobin of 5.3, patient was transfuse 1 unit of packed RBCs, - hemoglobin stable post transfusion, continue to monitor - patient has a history of chronic anemia /miyelodysplasia, requiring blood transfusions in the recent past. Patient follows up with Dr. Negro (6) Elevated LFTs: Code(s): R94.5 - Abnormal results of liver function studies Status: Acute Assessment and Plan: LFTs elevated could be related to cirrhosis, shock liver - will maintain adequate mean arterial pressures for end organ perfusion - Follow LFTs (7) Alcoholism: Code(s): F10.20 - Alcohol dependence, uncomplicated Status: Acute Assessment and Plan: according the patient drinks daily, she states he drinks quite a bit - continue thiamine and folic acid - elevated LFTs could be also related to alcohol abuse, cirrhosis, shock liver - CT scan of the abdomen and pelvis On 12/07/2019 showed surface nodularity off liver suggesting cirrhosis, spleen is upper limits of normal size. Is peripancreatic stranding and thickening, pancreatitis cannot be excluded. Mild colonic diverticulosis, bilateral recent rib fractures, extensive coronary and abdominal aortic arthrosclerosis. Nonspecific thickening of distal esophageal wall possible 2nd esophagitis. (8) Myelodysplastic syndrome: Code(s): D46.9 - Myelodysplastic syndrome, unspecified Status: Acute Assessment and Plan: patient follows with Dr. Negro (9) Cirrhosis of liver: Code(s): K74.60 - Unspe
--- NOTE | 2019-12-08 13:20 | ECG_ITS ---
Measurements Intervals Tower Rate: 81 P: [place]: 0 QRS: 53 QRSD: 117 T: -32 QT: 479 QTc: 557 Interpretive Statements ATRIAL FIBRILLATION LOW QRS VOLTAGE- DIFFUSE LEADS INCOMPLETE RIGHT BUNDLE BRANCH BLOCK ST-T WAVE ABNORMALITY IN ANTEROLATERAL LEADS- CONSIDER ISCHEMIA ABNORMAL ECG Electronically Signed On 12-08-2019 13:38:56 [employer] by Mirza Weinstein D.O.
[2019-12-08 13:52] LABS: Glucose Point of Care 161 (65-105)
[2019-12-08] MEDS: MIDAZOLAM HCL 50 MG in DEXTROSE 5% 90 ML IV CONT (13:58)
[2019-12-08 14:04] LABS: Glucose Point of Care 182 (65-105)
[2019-12-08 15:00] LABS: Glucose Point of Care 160 (65-105)
--- NOTE | 2019-12-08 15:00 | PM.IMPN ---
Progress Note: A&P Assessment and Plan (1) Acute respiratory failure: Qualifiers: Respiratory failure complication: unspecified whether with hypoxia or hypercapnia Qualified Code(s): J96.00 - Acute respiratory failure, unspecified whether with hypoxia or hypercapnia Code(s): J96.00 - Acute respiratory failure, unspecified whether with hypoxia or hypercapnia Status: Acute Assessment and Plan: Patient with agonal breathing in the ER and actually coded requiring CPR and Epinephrine. ABG showing 6.98/29/413 on mechanical ventilation on admission. Unclear on how long patient was down. CXR on admission showing perihilar disease atelectasis vs PNA. ABG much better. Continue mechanical ventilation. Continue neb treatments. (2) Septic shock: Code(s): A41.9 - Sepsis, unspecified organism; R65.21 - Severe sepsis with septic shock Status: Acute Assessment and Plan: BP low on admission to 77/44. Levophed started in ER peripherally then via central line. CT scan showing diffuse peripancreatic stranding. Consider pancreatitis vs catastrophic bowel infarct given the vascular disease noted. Toes are cyanotic and my have infarcted. BCx NGTD. Continue pressors. Continue supportive care. Discussed with enterprise manager and appreciate his input. (3) Acute pancreatitis: Code(s): K85.90 - Acute pancreatitis without necrosis or infection, unspecified Status: Acute Assessment and Plan: CT scan on admission showing diffuse peripancreatic stranding. There is nonspecific thickening along the anterior pararenal fascia, especially on the left, as well as some prominence of the lateroconal fascia bilaterally. Pancreatitis is not excluded. Lipase 464 on admission but 36936 today. Probably related to the septic shock but can not exclude catastrophc abdominal event. Could also be rlated to his alcoholism. There is gallbladder wall thickening and evidence of cholelithiasis. There is also pericholecystic fluid and/or stranding with thickened wall. Keep NPO. Trend Lipase. (4) Elevated troponin: Code(s): R79.89 - Other specified abnormal findings of blood chemistry Status: Acute Assessment and Plan: Trop climbed to 0.84 yesterday. EKG did not show any significant ST-T wave changes. Probably Type II MD related to the septic shock and code. Trend Trop (5) Cardiopulmonary arrest: Code(s): I46.9 - Cardiac arrest, cause unspecified Status: Acute Assessment and Plan: As above. CT brain on admission showing normal aging brain. May need to repeat depending how he does off sedation. (6) Anemia: Code(s): D64.9 - Anemia, unspecified Status: Chronic Assessment and Plan: Hgb 5.3. Has a hx of anemia. Guaiac negative in the ER. Nothing from NGT. Suspect this is probably more chronic causing his letheragy noted by his . Patient received 2U PRBC. hgb today at 7.1. Continue to monitor. (7) Bradycardia: Code(s): R00.1 - Bradycardia, unspecified Status: Acute Assessment and Plan: Atropine given x3 in the field. HR better. AFib noted. Continue telemetry. (8) Hypoglycemia: Code(s): E16.2 - Hypoglycemia, unspecified Status: Acute Assessment and Plan: Patient with hypoglycemia on admission. Glucose better now. Continue to monitor. Continue sliding scale and hypoglycemia protocol. (9) BLAS (acute kidney injury): Code(s): N17.9 - Acute kidney failure, unspecified Status: Acute Assessment and Plan: Baseline Cr 1.2-1.4 last year. Cr 5.1 on admission. No UOP with Lou placement. Placement verified by CT. CT scan showing no renal mass lesion or urinary tract calculus or hydroureteronephrosis. UOP has recovered and Cr 4.7 this morning. Continue IV fluids. (10) Hyperkalemia: Code(s): E87.5 - Hyperkalemia Status: Acute Assessm
--- NOTE | 2019-12-08 15:32 | PM.CNNEP ---
Assessment and Plan Assessment and plan (1) BLAS (acute kidney injury): Code(s): N17.9 - Acute kidney failure, unspecified Status: Acute (2) Septic shock: Code(s): A41.9 - Sepsis, unspecified organism; R65.21 - Severe sepsis with septic shock Status: Acute (3) Hyperkalemia: Code(s): E87.5 - Hyperkalemia Status: Acute (4) Lactic acidosis: Code(s): E87.2 - Acidosis Status: Acute (5) Severe anemia: Code(s): D64.9 - Anemia, unspecified Status: Acute (6) Acute respiratory failure: Qualifiers: Respiratory failure complication: unspecified whether with hypoxia or hypercapnia Qualified Code(s): J96.00 - Acute respiratory failure, unspecified whether with hypoxia or hypercapnia Code(s): J96.00 - Acute respiratory failure, unspecified whether with hypoxia or hypercapnia Status: Acute Additional Plan Blake has acute renal failure/acute kidney injury as evidenced by his labs on admission. The etiology of his insult to his kidneys is most likely acute tubular necrosis due to his hemodynamic instability Chichi refer to multiorgan system failure. Surprisingly, since his admission, he does appear to be making more urine than what he had been previously it was very possible that his renal function may already be improving. Nevertheless, as already mentioned already, he remains at high risk for the possibility of renal replacement therapy /dialysis as a treatment option if his kidney function fails to improve or he runs into issues relating to critical electrolyte abnormalities, acidosis unresponsive to medical therapy, volume overload, and/or uremia. I was not able to discuss with his family if they would be willing to pursue dialysis as a treatment option should he require it although from my discussion with Dr. Hennessy, the patient's code status has already been changed to DNR and if he fails to make any significant improvement in the next 24-48 hours, family is considering possibly withdrawing support which seems appropriate I will continue to follow patient with you vitamins hospitalized make further recommendations during his hospital course Thank you for allowing me participating the care of this patient. History of Present Illness Reason for Consult Consult date: 12/08/19 Reason for consult: acute renal failure Chief Complaint Chief complaint: Multisystem organ failure/severe lactic acidosis/s History of Present Illness Narrative: All of the information I have obtained is from review of the electronic medical record as well as discussion with the physicians and nurses involved in his care as the patient is unable to provide me with any history and no family is around to help provide any either. The patient is a 74 year old Caucausian male with mulitple medical problems as noted below who presented to [facility] ER 24 hours ago with altered mental status. The patient was hemodyanmically unstable with agonal breathing and bradycarida. Per ER physician notes, CPR was performed briefly as for these issues which was complicated by significant hypotension. A central line was inserted the right femoral vein emergently for IV access and IVF admistration. Family indicates his overal health has been declining in the last year -- he as anemia requiring blood transfusions and follows with Dr. Negro which has been further complicated by poor oral intake, increasing weakness, and polyuria. On the day of admission his stated he was having trouble breathing and was unresponsive and EMS was contacted at that time. Work-up and evaluation in the ER demonstrated the patient to be hypoglycemic, with STAT labs showing patient was hypoglycemia, leukocytosis, severe lactic acidosis, hyperkalemia, elevated LFTS, elevated lipase and acute kidney injury. He was aggressively fluid resuscitated but necessitated institution of a vasopressor therapy and subsequently ad
[2019-12-08] MEDS: HYDROCORTISONE SODIUM SUCCINATE 100 MG/2 ML VIAL IV PUSH ×2 (15:51→21:33)
[2019-12-08 16:00] LABS: Glucose Point of Care 150 (65-105)
[2019-12-08] MEDS: DEXTROSE 5%/0.9% SOD CHL 1,000 ML 150 ML IV CONT (16:05)
[2019-12-08] MEDS: VASOPRESSIN INJ 100 UNITS in DEXTROSE 5% 95 ML IV CONT (16:54)
[2019-12-08 16:58] LABS: Lactic Acid 2.3 mmol/L (0.7-2.1)
[2019-12-08] MEDS: INSULIN HUMAN REGULAR (*BKC) 100 UNITS in SODIUM CHLORIDE 0.9% IV 99 ML 12.2 UNITS IV CONT (18:20)
[2019-12-08 19:01] LABS: Glucose Point of Care 163 (65-105)
[2019-12-08 19:01] LABS: Glucose Point of Care 148 (65-105)
[2019-12-08 19:01] LABS: Glucose Point of Care 171 (65-105)
[2019-12-08 19:43] LABS: Blood Urea Nitrogen 110 mg/dL (9-20); Calcium 6.4 mg/dL (8.4-10.2); Carbon Dioxide 36 mmol/L (22-30); Chloride 87 mmol/L (98-107); Estimated CRCL calculation 18 ml/min; Estimated Glomerular Filt Rate 15; Glucose 141 mg/dL (75-110); Potassium 3.4 mmol/L (3.4-5.0); Sodium 137 mmol/L (137-145)
[2019-12-08 20:58] LABS: Glucose Point of Care 135 (65-105)
[2019-12-08 21:44] LABS: Glucose Point of Care 155 (65-105)
[2019-12-08] MEDS: SODIUM CHLORIDE 0.9% IV 1,000 ML 150 ML IV CONT (22:59)
[2019-12-09] VITALS (13 sets, daily range): BP systolic 105–124; BP diastolic 46–59; PULSE 87–102; RESP 18; TEMP 36.3–36.5; O2SAT 96–99
[2019-12-09 01:23] LABS: Glucose Point of Care 167 (65-105)
[2019-12-09] MEDS: IPRATROPIUM BR 0.02% INH SOLN 0.5 MG/2.5 ML VIAL INHALATION ×2 (01:29→08:25)
[2019-12-09] MEDS: ALBUTEROL SULFATE NEB 2.5 MG/0.5 ML INH 5 MG INHALATION ×2 (01:29→08:25)
[2019-12-09 04:16] LABS: Alveolar/Arterial O2 Gradient 211.3 mmHg; Base Excess ABG 3.3 mEq/l (+/-2.0); Carboxyhemoglobin 0.3 % THb (0-2.0); Fractional Inspired Oxygen 50 %; HCO3 ABG 28.5 mEq/l (22.0-26.0); Methemoglobin ABG 0.9 %THb (0-1.5); Oxygen Content ABG 11.3 %vol (16.0-22.0); Oxyhemoglobin 93.9 % THb (90.0-100.0); PCO2 ABG 46.9 mmHg (35.0-45.0); PO2 ABG 92.4 mmHg (80.0-100.0); PO2 FiO2 Ratio Arterial Blood 1.85 %; Reduced Hemoglobin 4.9 %THb (0-5.0); Total Hemoglobin 8.4 g/dL (12.0-18.0); pH ABG 7.401 (7.350-7.450)
[2019-12-09 04:18] LABS: Device VENTILATOR; Modified Allen's Test Pass; Site Drawn ARTLINE
[2019-12-09 04:19] LABS: Arterial Blood Gas PEEP 5 cmH2O; Arterial Blood Gas Tidal Volume 500 ml; Arterial Blood Gas Vent Mode CMV; Arterial Blood Gas Ventilator rate 18 /MIN
[2019-12-09 04:25] LABS: Hematocrit 22.3 % (42.0-52.0); Hemoglobin 7.1 g/dL (14.0-18.0); Immature Platelet Fraction Pct 7.3 % (0.9-11.2); Mean Corpuscular HGB Conc 31.8 g/dl (32-36); Mean Corpuscular Hemoglobin 23.3 pg (26-34); Mean Corpuscular Volume 73.1 fl (80-100); Platelet Count Result 293 k/mm3 (150-375); Red Blood Count 3.05 M/mm3 (4.6-6.20); Red Cell Distribution Width 29.9 % (11.5-14.5)
[2019-12-09 04:35] LABS: Triglycerides 95 mg/dL (<150)
[2019-12-09 04:35] LABS: INR 2.1; Prothrombin Time 23.5 Seconds (11.1-14.7)
[2019-12-09 04:36] LABS: Partial Thromboplastin Time 38.4 SECONDS (22.3-36.8)
[2019-12-09 04:37] LABS: Alanine Aminotransferase 399 U/L (4-50); Albumin Level 2.7 g/dL (3.5-5.1); Alkaline Phosphatase 100 U/L (38-126); Aspartate Amino Transferase 608 U/L (17-59); Bilirubin,Total 4.4 mg/dL (0.2-1.3); Blood Urea Nitrogen 103 mg/dL (9-20); Calcium 6.3 mg/dL (8.4-10.2); Carbon Dioxide 31 mmol/L (22-30); Chloride 89 mmol/L (98-107); Estimated CRCL calculation 19 ml/min; Estimated Glomerular Filt Rate 16; Glucose 273 mg/dL (75-110); Lipase 467 U/L (23-300); Magnesium 1.4 mg/dL (1.6-2.3); Potassium 4.2 mmol/L (3.4-5.0); Sodium 135 mmol/L (137-145)
[2019-12-09 04:55] LABS: Sodium Urine Random 59 meq/L
[2019-12-09] MEDS: SODIUM CHLORIDE 0.9% IV 1,000 ML 150 ML IV CONT (05:44)
[2019-12-09] MEDS: INSULIN ASPART (*BKC) 100 UNITS/ML SUB-Q (05:48)
[2019-12-09] MEDS: HYDROCORTISONE SODIUM SUCCINATE 100 MG/2 ML VIAL IV PUSH (05:55)
[2019-12-09 06:03] LABS: Glucose Point of Care 291 (65-105)
[2019-12-09 08:00] LABS: Glucose Point of Care 292 (65-105)
[2019-12-09] MEDS: PANTOPRAZOLE SODIUM IV 40 MG VIAL IV PUSH (08:21)
[2019-12-09] MEDS: THIAMINE HCL 200 MG/2 ML VIAL 100 MG IV PUSH (08:21)
[2019-12-09] MEDS: INSULIN DETEMIR 100 UNITS/ML 20 UNITS SUB-Q (08:30)
--- NOTE | 2019-12-09 08:38 | WPDINTPN ---
Progress Note: A&P Assessment and Plan (1) Septic shock: Code(s): A41.9 - Sepsis, unspecified organism; R65.21 - Severe sepsis with septic shock Status: Acute Assessment and Plan: - severe lactic acidosis, patient was adequately fluid-resuscitated. Patient multiorgan failure. Patient upon arrival to the ICU was bradycardic in the 40s, hypotensive with systolic blood pressure in the 50s, agonal breathing on the mechanical ventilator. Was given 1 amp of epinephrine, 3 amps of bicarb, ventilator adjusted. Levophed was initially bumped up and is slowly being weaned down - lactic acid trending down, will continue to monitor - continue ceftriaxone, azithromycin and vancomycin - blood cultures No growth - patient on Levophed, maintain MAP > 70mmHg - WBC trending down - Onstress dose steroids (2) Acute respiratory failure: Qualifiers: Respiratory failure complication: unspecified whether with hypoxia or hypercapnia Qualified Code(s): J96.00 - Acute respiratory failure, unspecified whether with hypoxia or hypercapnia Code(s): J96.00 - Acute respiratory failure, unspecified whether with hypoxia or hypercapnia Status: Acute Assessment and Plan: patient presented to the ED with agonal respirations, metabolic acidosis, was intubated in the ED on 12/07/2019. - ABGs much improved this morning, ventilator adjusted, will wean FiO2 as tolerated - chest x-ray showing worsening airspace opacities - continue antibiotics as above - continue bronchodilators (3) BLAS (acute kidney injury): Code(s): N17.9 - Acute kidney failure, unspecified Status: Acute Assessment and Plan: patient presented with acute kidney injury and elevated creatinine - adequately fluid-resuscitated - hyperkalemia: Resolved - metabolic acid improving on bicarb infusion. OFF bicarb infusion - renal ultrasound was unremarkable, no stones, masses or hydronephrosis - patient with adequate urine output, likely post ATN. Appreciate Nephrology evaluation and recommendations - continue to monitor renal function, electrolytes and urine output (4) Hyperkalemia: Code(s): E87.5 - Hyperkalemia Status: Acute Assessment and Plan: resolved, potassium normalized - will continue monitor (5) Severe anemia: Code(s): D64.9 - Anemia, unspecified Status: Acute Assessment and Plan: patient presented with hemoglobin of 5.3, patient was transfuse 1 unit of packed RBCs, - hemoglobin stable post transfusion, continue to monitor - patient has a history of chronic anemia /miyelodysplasia, requiring blood transfusions in the recent past. Patient follows up with Dr. Negro (6) Elevated LFTs: Code(s): R94.5 - Abnormal results of liver function studies Status: Acute Assessment and Plan: LFTs elevated could be related to cirrhosis, shock liver - will maintain adequate mean arterial pressures for end organ perfusion - LFTs trending down (7) Alcoholism: Code(s): F10.20 - Alcohol dependence, uncomplicated Status: Acute Assessment and Plan: according the patient drinks daily, she states he drinks quite a bit - continue thiamine and folic acid - elevated LFTs could be also related to alcohol abuse, cirrhosis, shock liver - CT scan of the abdomen and pelvis On 12/07/2019 showed surface nodularity off liver suggesting cirrhosis, spleen is upper limits of normal size. Is peripancreatic stranding and thickening, pancreatitis cannot be excluded. Mild colonic diverticulosis, bilateral recent rib fractures, extensive coronary and abdominal aortic arthrosclerosis. Nonspecific thickening of distal esophageal wall possible 2nd esophagitis. (8) Myelodysplastic syndrome: Code(s): D46.9 - Myelodysplastic syndrome, unspecified Status: Acute Assessment and Plan: patient follows with Dr. Negro (9) Cirrhosis of gabriel
[2019-12-09] MEDS: FOLIC ACID 1 MG/0.2 ML INJ IV PUSH (08:44)
--- NOTE | 2019-12-09 08:56 | PM.PNNEP ---
Progress Note: A&P Assessment and Plan (1) BLAS (acute kidney injury): Code(s): N17.9 - Acute kidney failure, unspecified Status: Acute Assessment and Plan: BLAS. probably due to septic shock and low bp. creatinine improving slowly. urine output is better Discussed with Dr Hennessy. family considering withdrawal of care. (2) Septic shock: Code(s): A41.9 - Sepsis, unspecified organism; R65.21 - Severe sepsis with septic shock Status: Acute Assessment and Plan: pressors at a lower dose (3) Hyperkalemia: Code(s): E87.5 - Hyperkalemia Status: Acute Assessment and Plan: resolved (4) Lactic acidosis: Code(s): E87.2 - Acidosis Status: Acute Assessment and Plan: improved (5) Severe anemia: Code(s): D64.9 - Anemia, unspecified Status: Acute Assessment and Plan: Hb stll low. (6) Acute respiratory failure: Qualifiers: Respiratory failure complication: unspecified whether with hypoxia or hypercapnia Qualified Code(s): J96.00 - Acute respiratory failure, unspecified whether with hypoxia or hypercapnia Code(s): J96.00 - Acute respiratory failure, unspecified whether with hypoxia or hypercapnia Status: Acute Assessment and Plan: on ventilator Additional Plan Blake has acute renal failure/acute kidney injury as evidenced by his labs on admission. The etiology of his insult to his kidneys is most likely acute tubular necrosis due to his hemodynamic instability Chichi refer to multiorgan system failure. Surprisingly, since his admission, he does appear to be making more urine than what he had been previously it was very possible that his renal function may already be improving. Nevertheless, as already mentioned already, he remains at high risk for the possibility of renal replacement therapy /dialysis as a treatment option if his kidney function fails to improve or he runs into issues relating to critical electrolyte abnormalities, acidosis unresponsive to medical therapy, volume overload, and/or uremia. I was not able to discuss with his family if they would be willing to pursue dialysis as a treatment option should he require it although from my discussion with Dr. Hennessy, the patient's code status has already been changed to DNR and if he fails to make any significant improvement in the next 24-48 hours, family is considering possibly withdrawing support which seems appropriate I will continue to follow patient with you vitamins hospitalized make further recommendations during his hospital course Thank you for allowing me participating the care of this patient. Subjective Date/time seen: 12/09/19 08:56 Interval history: pt is poorly responsive. bp is better, pressors at a lower dose. making urine. Review of Systems Cardiovascular: Cardiovascular: Reports no additional cardiovascular complaints Respiratory: Respiratory: Reports no additional respiratory complaints Gastrointestinal: Gastrointestinal: Reports no additional gastrointestinal complaints Genitourinary: Genitourinary: Reports no additional male genitourinary complaints Exam Narrative: Exam Narrative: Well developed well-nourished in no acute distress Lungs symmetric and coarse Heart regular without rub Abdomen bowel sounds positive soft nontender Extremities no edema Skin no rash or sq nodules Objective Data Vital Signs Vital Signs: Vital Signs - 24 hr 12/08/19 09:54 12/08/19 09:57 12/08/19 10:00 Temperature 36.6 C Pulse Rate 79 79 79 Respiratory Rate 22 H 22 H Blood Pressure 130/61 Pulse Oximetry 96 96 12/08/19 10:04 12/08/19 12:00 12/08/19 12:02 Temperature 36.3 C L Pulse Rate 80 80 80 Respiratory Rate 22 H 22 H Blood Pressure 118/68 Pulse Oximetry 96 96 12/08/19 14:00 12/08/19 15:18 12/08/19 15:27 Temperature Pulse Rate 81 83 83 Respiratory Rate 19 Blood Pressure P
--- NOTE | 2019-12-09 09:08 | PM.IMPN ---
Progress Note: A&P Assessment and Plan (1) Acute respiratory failure: Qualifiers: Respiratory failure complication: unspecified whether with hypoxia or hypercapnia Qualified Code(s): J96.00 - Acute respiratory failure, unspecified whether with hypoxia or hypercapnia Code(s): J96.00 - Acute respiratory failure, unspecified whether with hypoxia or hypercapnia Status: Acute Assessment and Plan: Patient with agonal breathing in the ER and actually coded requiring CPR and Epinephrine. ABG showing 6.98/29/413 on mechanical ventilation on admission. Unclear on how long patient was down. CXR on admission showing perihilar disease atelectasis vs PNA. ABG much better. Continue mechanical ventilation. Continue neb treatments. (2) Septic shock: Code(s): A41.9 - Sepsis, unspecified organism; R65.21 - Severe sepsis with septic shock Status: Acute Assessment and Plan: BP low on admission to 77/44. Levophed started in ER peripherally then via central line. CT scan showing diffuse peripancreatic stranding. Consider pancreatitis vs catastrophic bowel infarct given the vascular disease noted. Toes are cyanotic and my have infarcted. BCx NGTD. Was on 3 pressors but now down to Levophed only. Continue pressors and wean as toelrated. Continue supportive care. Discussed with interior design program chair and appreciate his input. (3) Acute pancreatitis: Qualifiers: Acute pancreatitis complication: unspecified Pancreatitis type: unspecified pancreatitis type Qualified Code(s): K85.90 - Acute pancreatitis without necrosis or infection, unspecified Code(s): K85.90 - Acute pancreatitis without necrosis or infection, unspecified Status: Acute Assessment and Plan: CT scan on admission showing diffuse peripancreatic stranding. There is nonspecific thickening along the anterior pararenal fascia, especially on the left, as well as some prominence of the lateroconal fascia bilaterally. Pancreatitis is not excluded. Lipase 464 on admission but 77619 yesterday. Surprisingly, Lipase 467 today for unclear reasons. There is GB wall thickening and evidence of cholelithiasis. There is also pericholecystic fluid and/or stranding with thickened wall. Passed stone? Alcohol related? COnsider starting TF today. Trend Lipase. (4) Elevated troponin: Code(s): R79.89 - Other specified abnormal findings of blood chemistry Status: Acute Assessment and Plan: Trop climbed to 0.84 yesterday. EKG did not show any significant ST-T wave changes. Echo showing EF 70% with Grade III diastolic dysfunction and severe pulmonary HTN (RVSP 70). Probably Type II NV related to the septic shock and code. Trend Trop. (5) Cardiopulmonary arrest: Code(s): I46.9 - Cardiac arrest, cause unspecified Status: Acute Assessment and Plan: As above. CT brain on admission showing normal aging brain. May need to repeat depending how he does off sedation. (6) Anemia: Code(s): D64.9 - Anemia, unspecified Status: Chronic Assessment and Plan: Hgb 5.3. Has a hx of chronic anemia from myelodysplasia. Guaiac negative in the ER. Nothing from NGT. Suspect this is probably more chronic causing his letheragy noted by his . Patient received 2U PRBC. hgb today at 7.1 and stable. Continue to monitor. (7) Bradycardia: Code(s): R00.1 - Bradycardia, unspecified Status: Acute Assessment and Plan: Atropine given x3 in the field. HR stable. AFib noted. Echo as mentioned above. Continue telemetry. (8) Hypoglycemia: Code(s): E16.2 - Hypoglycemia, unspecified Status: Acute Assessment and Plan: Patient with hypoglycemia on admission. Glucose better now. Continue to monitor. Continue sliding scale and hypoglycemia protocol. (9) BLAS (acute kidney injury): Code(s): N17.9 - Acute kidney failure, unspeci
[2019-12-09] MEDS: MIDAZOLAM HCL 50 MG in DEXTROSE 5% 90 ML IV CONT (09:13)
[2019-12-09] MEDS: VANCOMYCIN HCL 1,500 MG in SODIUM CHLORIDE 0.9% IV 500 ML 333.3 MG IVPB (09:16)
[2019-12-09] MEDS: MORPHINE SULFATE 4 MG/ML INJ 5 MG IV PUSH (10:37)
[2019-12-09] MEDS: LORAZEPAM INJ 2 MG/ML VIAL IV PUSH (10:37)
--- NOTE | 2019-12-09 11:27 | PC.NURSE ---
Pt placed on comfort measures per family request and MD Hennessy order. Pt medicated per order with morphine and ativan, IV gtts d/c'd, pt at 1114 on 12/09/19. Pronounced per Nelson coffey RN.
--- NOTE | 2019-12-09 17:54 | P.DN_ITS ---
Discharge Sum: Prov Provider Primary care physician: Jaclyn King MD Admitting provider: Rajinder España MD Consults: 12/07/19 08:46 Consult to Physician Routine Comment: Consulting Provider: Zhane Hennessy Reason for consultation: ICU Has provider been notified: Yes 12/08/19 08:12 Consult to Physician Routine Comment: Consulting Provider: Silke Ochoa cnc service technician/MD group to consult: NEPHROLOGY Reason for consultation: BLAS, septic shock Has provider been notified: Yes Discharge Sum: Diag Contributing Factors (1) Acute respiratory failure: (2) Septic shock: (3) Acute pancreatitis: (4) Elevated troponin: (5) Cardiopulmonary arrest: (6) Anemia: (7) Bradycardia: (8) Hypoglycemia: (9) BLAS (acute kidney injury): (10) Hyperkalemia: (11) Metabolic acidosis: (12) Atrial fibrillation: (13) Type 2 diabetes mellitus: (14) Elevated LFTs: (15) Coagulopathy: (16) Alcoholism: (17) Myelodysplastic syndrome: (18) Cirrhosis of liver: (19) Essential (primary) hypertension: (20) COPD (chronic obstructive pulmonary disease): Discharge Sum: Summary Date and Time Date of admission: 12/07/19 08:44 Summary Details: Jose 4-year-old male cirrhosis brought in by EMS after being found unresponsive. In the field, he was noted to be bradycardic and hypoglycemic. Was given atropine and glucose. In the emergency room, he was in respiratory distress. Pulse was weak and a code was called. Patient was resuscitated but unclear how long he was down. Epinephrine was given. Patient was intubated and central line was placed. He was started on pressors for a systolic blood pressure in the 70s. He was hypothermic. He had multiorgan failure. He was anemic the hemoglobin 5. Patient was on 3 pressors overnight including warming blanket. He had oliguric renal failure. He was given stress dose steroids. His clinical condition improved. He was down to 1 pressor. His blood pressure remains stable. His temperature improved. He is urine output improved as well. His kidney and liver numbers improved. His was concerned about the patient's quality of life. Patient initially made a DNR. later decided to withdraw care. Patient was may comfortable and was extubated earlier today. He a short time later. Additional Data Attending physician: Rajinder España MD
== END 2019-12-09 11:15 | disposition expired | DRG 871 ==
LOC: ANHED 08:51 → ANHICU 09:35
PROVIDERS: General Practice; Internal Medicine; Internal Medicine Nephrology; Admitting Provider Internal Medicine; Emergency Provider Emergency Medicine; PCP Family Medicine; Visit Provider Internal Medicine
DX: A41.9 Sepsis, unspecified organism (principal); R65.21 Severe sepsis with septic shock; K85.80 Other acute pancreatitis without necrosis or infection; K72.00 Acute and subacute hepatic failure without coma; J96.01 Acute respiratory failure with hypoxia; N17.0 Acute kidney failure with tubular necrosis; I21.A1 Myocardial infarction type 2; I48.20 Chronic atrial fibrillation, unspecified; E87.2 Acidosis; D68.4 Acquired coagulation factor deficiency; K70.30 Alcoholic cirrhosis of liver without ascites; K70.10 Alcoholic hepatitis without ascites; I46.9 Cardiac arrest, cause unspecified; J44.9 Chronic obstructive pulmonary disease, unspecified; E11.9 Type 2 diabetes mellitus without complications; E87.5 Hyperkalemia; I10 Essential (primary) hypertension; R00.1 Bradycardia, unspecified; D64.89 Other specified anemias; D46.9 Myelodysplastic syndrome, unspecified; E78.5 Hyperlipidemia, unspecified; F10.20 Alcohol dependence, uncomplicated; Z98.42 Cataract extraction status, left eye; Z98.41 Cataract extraction status, right eye; Z87.891 Personal history of nicotine dependence; Z28.21 Immunization not carried out because of patient refusal
CPT/HCPCS: 31500; 36415; 36430; 36556; 36600; 70450; 71045; 74018; 74176; 76775; 80048; 80053; 80307; 81001; 82140; 82375; 82550; 82805; 82948; 83036; 83050; 83605; 83690; 83735; 84100; 84300; 84439; 84443; 84478; 84480; 84484; 85014; 85018; 85025; 85027; 85055; 85610; 85730; 86140; 86850; 86900; 86901; 86923; 87040; 87081; 87086; 93005; 94003; 94640; 96361; 96365; 96366; 96367; 96368; 96375; 99291; A9270; C1751; C8929; C9113; J0171; J0456; J0610; J0696; J1720; J1815; J2060; J2250; J2270; J2370; J3010; J3370; J3411; J7030; J7040; J7042; J7050; J7070; J7120; L1830; P9016; Q9957